=== PATIENT | female | born 1975 | race Caucasian/White ===

== ENCOUNTER 2016-09-08 16:51 | Emergency (ER) | payer OTHER ==
[2016-09-08 19:32] VITALS: BP 149/79
--- NOTE | 2016-09-08 19:35 | UC ---
Knee Pain HPI - HPI Summary HPI Summary: compalint of left knee pain for the last 2 months started using the eliptical machine and the next mrjustus had sharp pain in the front of her knee going up and down the stairs knee is painful when she turns she feels her knee is unstable now the right knee is painful at the end of the day -muscle pain- uses heating pad with relief denies trauma to the knee taking acetminophen without much relief - History of Current Complaint Chief Complaint: UCLowerExtremity Stated Complaint: left knee pain Time Seen by Provider: 09/08/16 19:24 Hx Obtained From: Patient Hx Last Menstrual Period: 08/11/16 Onset/Duration: Sudden Onset, Lasting Weeks, Still Present Character: Aching Aggravating Factor(s): Movement, Weight Bearing Alleviating Factor(s): Rest Associated Signs And Symptoms: Positive: Weakness - Allergies/Home Medications Allergies/Adverse Reactions: Allergies Allergy/AdvReac Type Severity Reaction Status Date / Time No Known Allergies Allergy Verified 09/08/16 19:19 Home Medications: Home Medications Acetaminophen TAB* [Tylenol TAB*] 1,500 mg PO Q12H PRN 09/08/16 [History Confirmed 09/08/16] PMH/Surg Hx/FS Hx/Imm Hx Previously Healthy: Yes - Surgical History Surgical History: Yes Surgery Procedure, Year, and Place: C section 12/01/2002, 06/20/16 . -MISCARRIAGE/D&C - Family History Known Family History: Negative: Cardiac Disease, Hypertension, Diabetes - Social History Occupation: Employed Full-time Lives: With Family Alcohol Use: Occasionally Substance Use Type: None Smoking Status (MU): Former Smoker When Did the Patient Quit Smoking/Using Tobacco: 19 YRS AGO Review of Systems Constitutional: Negative Skin: Negative Eyes: Negative ENT: Negative Respiratory: Negative Cardiovascular: Negative Gastrointestinal: Negative Genitourinary: Negative Motor: Negative Neurovascular: Negative Musculoskeletal: Other: - left knee pain Neurological: Negative Psychological: Negative All Other Systems Reviewed And Are Negative: Yes Physical Exam Triage Information Reviewed: Yes Appearance: No Pain Distress, Well-Nourished, Obese Vital Signs: Initial Vital Signs Temp 98.8 F 09/08/16 19:10 Pulse 82 09/08/16 19:10 Resp 20 09/08/16 19:10 BP 149/79 09/08/16 19:10 Vital Signs Reviewed: Yes Eyes: Positive: Conjunctiva Clear ENT: Positive: Pharynx normal, TMs normal Neck: Positive: No Lymphadenopathy Respiratory: Positive: Lungs clear, Normal breath sounds, No respiratory distress Cardiovascular: Positive: RRR, No Murmur, Pulses Normal Abdomen Description: Positive: Nontender, Soft, Distended Bowel Sounds: Positive: Present Musculoskeletal: Positive: Other: - LLE- no edema ,erythema or ecchymosis medial midline tenderness no crepitus negative Kia's, negative drawer tests Knee Pain Course/Dx - Course Course Of Treatment: exam completed. most likely medial meniscus damage- no signs of instability. will start NSAIDS and send to ortho for further evaluaiton - Differential Dx/Diagnosis Differential Diagnosis/HQI/PQRI: Internal Derangement Of Knee, Sprain, Strain Provider Diagnoses: left knee pain Discharge - Discharge Plan Condition: Stable Disposition: HOME Patient Education Materials: Knee Pain (ED) Referrals: CORBIN Valera [Primary Care Provider] - Sukhdev Shepherd MD [Medical Doctor] - Additional Instructions: Increase fluids and rest Take acetaminophen or ibuprofen for fever or pain rest your knee call automotive parts specialist for further evaluation and treatment Please review your discharge instructions. If your symptoms do not improve please call your primary care provider or return to urgent care
== END 2016-09-08 19:47 | disposition home or self-care (01) ==
LOC: UCCORT 16:51
DX: M25.562 Pain in left knee (principal); M62.81 Muscle weakness (generalized); Z87.891 Personal history of nicotine dependence
CPT/HCPCS: 99211; G0463

== ENCOUNTER 2017-01-11 12:53 | Emergency (ER) | payer OTHER | END 2017-01-11 13:28 | disposition left against medical advice (07) | LOC: UCCORT 12:53 | DX: M25.569 Pain in unspecified knee (principal); Z53.21 Procedure and treatment not carried out due to patient leaving prior to being seen by health care provider ==

== ENCOUNTER 2018-08-27 16:44 | Emergency (ER) | payer OTHER ==
[2018-08-27 18:09] VITALS: BP 144/85
--- NOTE | 2018-08-27 18:45 | UC ---
Back Pain HPI - HPI Summary HPI Summary: 43 year old female presents with onset of right mid-lower back pain yesterday. Describes pain as a constant "ache". Worse with sitting for long periods of time. State she is able to find positions of comfort where she has no pain. Denies injury, fever, chills, abdominal pain, nausea, vomiting, dysuria, frequency, urgency, hematuria, vaginal discharge or abnormal bleeding. - History of Current Complaint Chief Complaint: UCBackPain Stated Complaint: MIDDLE BACK PAIN Time Seen by Provider: 08/27/18 18:14 Hx Obtained From: Patient Hx Last Menstrual Period: 08/03/18 Pain Intensity: 7 - Allergies/Home Medications Allergies/Adverse Reactions: Allergies Allergy/AdvReac Type Severity Reaction Status Date / Time No Known Allergies Allergy Verified 08/27/18 18:05 PMH/Surg Hx/FS Hx/Imm Hx Previously Healthy: Yes - Denies significant PMH - Surgical History Surgical History: Yes Surgery Procedure, Year, and Place: C section 12/01/2002. 11/21/13-MISCARRIAGE/D& C. Gastric bypass - Family History Known Family History: Negative: Cardiac Disease, Hypertension, Diabetes - Social History Occupation: Employed Full-time Lives: With Family Alcohol Use: Occasionally Substance Use Type: None Smoking Status (MU): Former Smoker When Did the Patient Quit Smoking/Using Tobacco: 19 YRS AGO Review of Systems All Other Systems Reviewed And Are Negative: Yes Constitutional: Negative: Fever, Chills Skin: Negative: Rash Respiratory: Positive: Negative Cardiovascular: Positive: Negative Gastrointestinal: Negative: Abdominal Pain, Vomiting, Diarrhea, Nausea Genitourinary: Negative: Dysuria, Hematuria, Frequency, Urgency, Vaginal/Penile Discharge Motor: Negative: Weakness Neurovascular: Negative: Decreased Sensation Musculoskeletal: Positive: Other: - See HPI Neurological: Positive: Negative Is Patient Immunocompromised?: No Physical Exam - Summary Physical Exam Summary: GENERAL APPEARANCE: Well developed, obese, alert and cooperative, and appears to be in no acute distress. NECK: Neck supple, non-tender. CARDIAC: Normal S1 and S2. No S3, S4 or murmurs. Rhythm is regular. There is no peripheral edema, cyanosis or pallor. Extremities are warm and well perfused. Capillary refill is less than 2 seconds. LUNGS: Clear to auscultation without rales, rhonchi, wheezing or diminished breath sounds. ABDOMEN: Positive bowel sounds. Soft, nondistended, nontender. No guarding or rebound. No masses or hepatosplenomegally. No CVA tenderness. MUSKULOSKELETAL: ROM intact to all extremities. No joint erythema or tenderness. Normal muscular development. Normal gait. BACK: Examination of the spine reveals normal posture, no spinal deformity or tenderness, decreased range of motion or muscular spasm. NEUROLOGICAL: Strength and sensation symmetric and intact throughout. SKIN: Skin normal color, texture and turgor with no lesions or eruptions. Triage Information Reviewed: Yes Vital Signs: Initial Vital Signs Temp 97.9 F 08/27/18 18:05 Pulse 68 08/27/18 18:05 Resp 20 08/27/18 18:05 BP 144/85 08/27/18 18:05 Pulse Ox 99 08/27/18 18:05 Vital Signs Reviewed: Yes Diagnostics - Laboratory Diagnostic Studies Completed/Ordered: POC UA normal. Back Pain Course/Dx - Course Course Of Treatment: 43 year old female presents with onset of right mid-lower back pain yesterday. Describes pain as a constant "ache". Worse with sitting for long periods of time. State she is able to find positions of comfort where she has no pain. Denies injury, fever, chills, abdominal pain, nausea, vomiting , dysuria, frequency, urgency, hematuria, vaginal discharge or abnormal bleeding. Afebrile. Vital signs stable. Exam was overall unremarkable. POC UA was normal. Suspect that her pain is musculoskeletal in origin however cannot fully exclude a small renal calculi despite the normal UA. Patient has history of gastric bypass therefore pain management is fairly limited. Recommending acetaminophen as well as conservative back pain measures at this time. She is to follow up with her PCP in 7 days if symptoms persist. Anticipatory guidance and warning symptoms reviewed with patient. Verbalizes understanding and agrees with POC. - Differential Dx/Diagnosis Differential Diagnosis/HQI/PQRI: Arthritis, Herniated Disc, Renal Colic, Strain Provider Diagnosis: Acute back pain Discharge - Sign-Out/Discharge Documenting (check all that apply): Patient Departure All imaging exams completed and their final reports reviewed: No Studies - Discharge Plan Condition: Stable Disposition: HOME Patient Education Materials: Back Pain (ED) Referrals: Ingrid Perez [facility] STICKER [Primary Care Provider] - 7 Days (If no improvement in symptoms.) Additional Instructions: The urine test performed in the clinic today was normal. I suspect that your back pain is muscular in origin. Take acetaminophen according to directions as needed for pain. Use a heating pad for 15-20 minutes 3-4 times a day to help relax the muscles. Follow up with you primary care provider in 7 days if symptoms persist. Seek immediate medical attention in the emergency room if you develop fever greater than 100.5 F, have worsening pain that is not managed with pain medication, develop severe abdominal pain, persistent vomiting, numbness, tingling, or weakness of the legs, you lose control of your bowel or bladder, or have any worsening of symptoms. - Billing Disposition and Condition Condition: STABLE Disposition: Home - Attestation Statements Provider Attestation: Per institutional requirements, I have reviewed the chart, however, I was not consulted specifically or made aware of this patient by the midlevel provider. I did not personally evaluate, interact with , or disposition this patient.
== END 2018-08-27 18:57 | disposition home or self-care (01) ==
LOC: UCCORT 16:44
DX: M54.5 Low back pain (principal); Z98.84 Bariatric surgery status; Z87.891 Personal history of nicotine dependence
CPT/HCPCS: 81003; 99211; G0463